=== PATIENT | male | born 1955 | race African-American/Black ===

== ENCOUNTER 2022-01-06 16:21 | Emergency (ER) | payer MEDICARE, OTHER ==
[~2022-01-06] VITALS: Ht 180.3 cm; Wt 79.4 kg
--- NOTE | 2022-01-06 16:22 | NUR ---
BIBS C/O HEART FAILURE SYMPTOMS; FEELING BLOATING, BILATERAL LEG EDEMA SINCE OCTOBER AND HAS PROGRESSIVELY BECOME WORSE. AMBULATORY, PLACED ON BED, AAXO4.
--- NOTE | 2022-01-06 16:35 | NUR ---
AT BED SIDE
--- NOTE | 2022-01-06 16:40 | NUR ---
PATIENT SIGNED AMA
[2022-01-06 16:47] VITALS: BP 114/66
== END 2022-01-06 16:44 | disposition home or self-care (01) ==
LOC: ER 16:31
DX: I50.9 Heart failure, unspecified (principal); R06.09 Other forms of dyspnea; E11.9 Type 2 diabetes mellitus without complications